=== PATIENT | male | born 1955 ===

== ENCOUNTER 2021-07-02 12:15 | Inpatient (IN) | payer OTHER ==
[2021-07-02] MEDS ORDERED: LIPITOR20 MG (13:17)
[2021-07-07] MEDS ORDERED: ACETAMINOPHEN500 M2 PO (11:06)
== END 2021-07-07 12:09 | disposition home or self-care (01) | DRG 375 ==
LOC: SURH 07-04 05:56 → O/R 07-04 05:56 → SURH 07-04 08:45
PROVIDERS: ADMIT Colon & Rectal Surgery; ATTEND Colon & Rectal Surgery
PROC: 0DBP8ZZ Excision of Rectum, Via Natural or Artificial Opening Endoscopic (ICD-10-PCS; principal; 2021-07-04 08:45)
DX: C20 Malignant neoplasm of rectum (principal); K92.1 Melena; Z85.048 Personal history of other malignant neoplasm of rectum, rectosigmoid junction, and anus; I11.9 Hypertensive heart disease without heart failure

== ENCOUNTER 2021-12-18 06:00 | Day surgery (SDC) | payer OTHER ==
[~2021-12-18 06:00] MED LIST: ACETAMINOPHEN500 M2 PO; LIPITOR20 MG
== END 2021-12-18 13:20 | disposition home or self-care (01) ==
LOC: AMB-ENDOS 06:00
PROVIDERS: ATTEND Colon & Rectal Surgery
DX: D12.0 Benign neoplasm of cecum (principal); Z20.822 Contact with and (suspected) exposure to COVID-19; I11.9 Hypertensive heart disease without heart failure; K64.1 Second degree hemorrhoids; C20 Malignant neoplasm of rectum; E78.5 Hyperlipidemia, unspecified; I10 Essential (primary) hypertension